=== PATIENT | male | born 1975 | race Caucasian/White ===

== ENCOUNTER 2021-06-26 06:08 | Emergency (ER) | payer OTHER ==
[~2021-06-26] VITALS: Ht 167.6 cm; Wt 87.0 kg
[2021-06-26] MEDS ORDERED: FOLIC ACID 1 MG, THIAMINE HCL 100 MG, MVI, ADULT NO.1 10 ML in DEXTROSE 5% WATER 1,000 ML IV ONE (07:00)
[2021-06-26] MEDS ORDERED: ONDANSETRON HCL 4MG/2ML INJ IV ONE (07:00)
[2021-06-26 08:05] LABS: CLARITY URINE CLEAR (CLEAR); COLOR URINE DARK YELLOW (YELLOW); KETONES URINE 3+ (NEGATIVE); LEUKOCYTE ESTERASE URINE TRACE (NEGATIVE); NITRITE URINE NEGATIVE (NEGATIVE); OCCULT BLOOD URINE TRACE (NEGATIVE); PROTEIN URINE 1+ (NEGATIVE); SPECIFIC GRAVITY URINE 1.025 (1.005-1.030)
[2021-06-26 08:05] LABS: BASOPHILS % 1.1 % (0.0-2.0); HEMATOCRIT. 44.2 % (42.0-52.0); HEMOGLOBIN. 15.3 g/dL (14.0-18.0); MEAN CORPUSCULAR HEMOGLOBIN 28.4 pg (28.0-32.0); MONOCYTES % 8.7 % (2.0-8.0); NEUTROPHILS % 67.2 % (40.0-76.0); PLATELET 241 x1000/uL (130-400); RED BLOOD CELL COUNT 5.39 mill/uL (4.7-6.1); RED CELL DISTRIBUTION WIDTH 13.1 % (11.6-14.6)
[2021-06-26 08:10] LABS: CHLORIDE 103 mEq/L (98-107)
[2021-06-26 08:14] LABS: ETHANOL BLOOD 40 mg/dL
[2021-06-26 08:33] LABS: PHENCYCLIDINE URINE SCREEN NEGATIVE (NEGATIVE)
[2021-06-26 08:34] LABS: *AMPHETAMINES SCREEN URINE NEGATIVE (NEGATIVE); *BARBITURATES SCREEN URINE NEGATIVE (NEGATIVE); *BENZODIAZEPINES SCREEN URINE NEGATIVE (NEGATIVE); *COCAINE SCREEN URINE NEGATIVE (NEGATIVE); CANNABINOID URINE SCREEN NEGATIVE (NEGATIVE); METHADONE URINE SCREEN NEGATIVE (NEGATIVE); OPIATES URINE SCREEN NEGATIVE (NEGATIVE)
[2021-06-26] MEDS ORDERED: LORAZEPAM 2MG/ML CPJ IV ONE ×2 (09:15→10:00)
[2021-06-26] MEDS ORDERED: LORA-250 MT (12:18)
[2021-06-26] MEDS ORDERED: ONDA4TAB5 PO (12:18)
[2021-06-26 12:43] VITALS: BP 142/90
== END 2021-06-26 12:45 | disposition home or self-care (01) ==
LOC: ER 06:08
DX: F10.229 Alcohol dependence with intoxication, unspecified (principal); Y90.2 Blood alcohol level of 40-59 mg/100 ml; F17.290 Nicotine dependence, other tobacco product, uncomplicated
CPT/HCPCS: 36415; 70450; 70551; 80053; 80305; 80307; 80320; 80329; 81003; 85025; 93005; 96365; 96375; 96376; 99284; J2060; J2405; J3411; J3490; J7070; 99285; G0480